=== PATIENT | female | born 1985 | race Asian ===

== ENCOUNTER 2016-10-23 21:13 | Emergency (ER) | payer OTHER ==
[2016-10-23 21:37] VITALS: BP 134/84; PULSE 96; TEMP 98.1; BMI 28.3
--- NOTE | 2016-10-23 23:18 | PDOC ---
History of Present Illness - General History Source: Patient Exam Limitations: No Limitations - History of Present Illness Initial Comments: 10/23/16 23:37 The patient is a 31 year old female with significant past medical history of asthma, ectopic (12/31/15) s/p left fallopian tube removal and PID who presents to the ED for 2 days of left lower quadrant pain. Patient describes pain as 10/10, sharp and radiating up to the left mid abdomen. Denies nausea, vomiting, or diarrhea. States she is currently on a cycle of clomid to stimulate her ovaries at a clinic in [place]. She does not have a WASHROOM OPERATOR here in [place] and has not been seen her WASHROOM OPERATOR in quite some time. Patient reports she is concern for having a ruptured ectopic on the right because her ectopic in the past involving the left fallopian tube, she was experiencing excruciating pain on the right. Denies vaginal bleeding or discharge. Denies dysuria, hematuria, urgency, and frequency. The patient denies fever, chills, diaphoresis, cough, SOB, chest pain, and palpitations. Allergies: NKDA Social History: No alcohol, tobacco, or drug use reported. Past Surgical History: resection of left fallopian tube secondary to ruptured ectopic (12/2015) PCP: Dr. Shilo Gonzalez <Sheila Burgess - Last Filed: 10/24/16 01:34> - General History Source: Patient <Elder Fair - Last Filed: 10/24/16 01:37> - General Chief Complaint: Pain Stated Complaint: ABD PAIN Time Seen by Provider: 10/23/16 23:13 Past History <Sheila Burgess - Last Filed: 10/24/16 01:34> - Past Medical History Asthma: Yes Diabetes: Yes (Borderline) - Psycho/Social/Smoking Cessation Hx Anxiety: No Suicidal Ideation: No Smoking History: Never smoked Have you smoked in the past 12 months: No Information on smoking cessation initiated: No Hx Alcohol Use: No Drug/Substance Use Hx: No Substance Use Type: None <Elder Fair - Last Filed: 10/24/16 01:37> - Past Medical History Allergies/Adverse Reactions: Allergies Allergy/AdvReac Type Severity Reaction Status Date / Time No Known Allergies Allergy Verified 10/23/16 21:29 Home Medications: Ambulatory Orders Ascorbate Calcium [Vitamin C] 500 mg PO DAILY #30 tablet 12/31/15 Docusate Sodium [Colace -] 100 mg PO DAILY #30 capsule 12/31/15 Ferrous Sulfate [Feosol] 325 mg PO BID #30 tablet 12/31/15 Ibuprofen [Motrin -] 600 mg PO QID #28 tablet 12/31/15 Ibuprofen 600 mg PO Q6H PRN #20 tablet 01/10/16 Oxycodone HCl/Acetaminophen [Percocet 5-325 mg Tablet] 1 tab PO Q6H PRN #12 tab MDD 4 01/10/16 Review of Systems - Review of Systems Able to Perform ROS?: Yes Comments:: 10/23/16 23:37 CONSTITUTIONAL: Absent: fever, no chills, no fatigue EYES: Absent: visual changes ENT: Absent: ear pain, no sore throat CARDIOVASCULAR: Absent: chest pain, no palpitations RESPIRATORY: Absent: cough, no SOB GI: +left lower quadrant pain radiating to the left mid abdomen Absent: no nausea, no vomiting, no constipation, no diarrhea GENITOURINARY: Absent: dysuria, no frequency, no hematuria MUSCULOSKELETAL: Absent: back pain, no arthralgia, no myalgia SKIN: Absent: rash NEURO: Absent: headache <Bharrat,Sheila - Last Filed: 10/24/16 01:34> *Physical Exam - Vital Signs Last Vital Signs Temp Pulse Resp BP Pulse Ox 98.1 F 96 H 18 134/84 99 10/23/16 21:31 10/23/16 21:31 10/23/16 21:31 10/23/16 21:31 10/23/16 21:31 - Physical Exam Comments: 10/23/16 23:37 GENERAL: Well-appearing, well-nourished. No apparent distress. HEENT: Normocephalic, atraumatic. PERRL, EOM intact. CARDIOVASCULAR: Normal S1, S2. Regular rate and rhythm. PULMONARY: Clear to auscultation bilaterally. ABDOMEN: Soft. Non-distended. Moderate tenderness with mild guarding of the left lower quadrant. No rebound. No organomegaly. Normoactive bowel sounds. PELVIC: Deferred to ultrasound. EXTREMITIES: Normal ROM in all four extremities. No gross deformities. SKIN: Warm, dry. No rash NEUROLOGICAL: No focal neurological deficits. <Sheila Burgess - Last Filed: 10/24/16 01:34> - Vital Signs Last Vital Signs Temp Pulse Resp BP Pulse Ox 98.1 F 96 H 18 134/84 99 10/23/16 21:31 10/23/16 21:31 10/23/16 21:31 10/23/16 21:31 10/23/16 21:31 <Elder Fair - Last Filed: 10/24/16 01:37> ED Treatment Course - RADIOLOGY Radiograph Interpretation: 10/24/16 01:34 EXAM: Pelvic ultrasound with Doppler study of the bilateral ovaries Reviewed by Imaging director of home economics: FINDINGS: The uterus is normal. Endometrium is normal as well with a thickness of 5 mm. Normal follicular right ovary. There is a 3 cm x 2.9 cm x 3.2 cm complex cyst of the left ovary, likely hemorrhagic. There is some fluid around the cyst and it is therefore likely rupturing. There is also free fluid in the pelvic cul-de-sac. <Sheila Burgess - Last Filed: 10/24/16 01:34> Medical Decision Making - Medical Decision Making 10/24/16 01:36 Dr. Fair: The scribe's documentation has been prepared under my direction and personally reviewed by me in its entirery. I confirm that the note above accurately reflects all work, treatment, procedures, and medical decision making performed by me. <Elder Fair - Last Filed: 10/24/16 01:37> *DC/Admit/Observation/Transfer - Attestations Scribe Attestion: 10/23/16 23:37 Documentation prepared by Sheila Burgess, acting as medical stenographer for Elder Fair DO. 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
[2016-10-23 23:53] LABS: URINE APPEARANCE CLEAR; URINE BILIRUBIN NEGATIVE (NEGATIVE); URINE BLOOD NEGATIVE (NEGATIVE); URINE COLOR LTYELLOW; URINE GLUCOSE (UA) NEGATIVE (NEGATIVE); URINE KETONE NEGATIVE (NEGATIVE); URINE LEUK ESTERASE NEGATIVE (NEGATIVE); URINE NITRITE NEGATIVE (NEGATIVE); URINE PROTEIN NEGATIVE (NEGATIVE); URINE UROBILINOGEN NEGATIVE mg/dL (0.2-1.0)
== END 2016-10-24 01:59 | disposition home or self-care (01) ==
LOC: JER 21:13
DX: N83.202 Unspecified ovarian cyst, left side (principal)
CPT/HCPCS: 76830-TC; 81003; 84703; 87086; 99281-25

== ENCOUNTER 2020-03-23 10:50 | Emergency (ER) | payer OTHER ==
[2020-03-23 11:33] VITALS: BP 139/80; PULSE 92; BMI 32.4
[2020-03-23 13:49] LABS: BASO % 0.5 % (0-2.0); EOS % 5.3 % (0-4.5); HEMATOCRIT 38.9 % (32.4-45.2); HEMOGLOBIN 12.6 GM/dL (10.7-15.3); LYMPH % 23.3 % (8-40); MCH 24.6 pg (25.7-33.7); MCHC 32.3 g/dl (32.0-36.0); MEAN CELL VOLUME 76.1 fl (80-96); MEAN PLT VOLUME 7.4 fl (7.5-11.1); MONO % 4.9 % (3.8-10.2); PLATELET COUNT 433 K/MM3 (134-434); RBC 5.11 M/mm3 (3.60-5.2); WHITE BLOOD COUNT 21.4 K/mm3 (4.0-10.0)
[2020-03-23 13:51] LABS: EPI CELLS 28 /uL (0-25.1); HYALINE CASTS 1 /uL (0-3.1); PH,URINE 5.5 (5.0-8.0); URINE APPEARANCE CLEAR; URINE BACTERIA 828 /uL (0-1359); URINE BILIRUBIN NEGATIVE (NEGATIVE); URINE COLOR YELLOW; URINE GLUCOSE (UA) NEGATIVE (NEGATIVE); URINE KETONE NEGATIVE (NEGATIVE); URINE LEUK ESTERASE NEGATIVE (NEGATIVE); URINE NITRITE NEGATIVE (NEGATIVE); URINE PROTEIN NEGATIVE (NEGATIVE); URINE RBC 30 /uL (0-23.9); URINE UROBILINOGEN 0.2 mg/dL (0.2-1.0); URINE WBC 7 /uL (0-25.8)
[2020-03-23 14:22] LABS: ANISOCYTOSIS 3+; MACROCYTOSIS 0; PLATELET ESTIMATE NORMAL
[2020-03-23 14:37] LABS: YEAST NON (NEGATIVE)
== END 2020-03-23 15:25 | disposition home or self-care (01) ==
LOC: JER 10:50
DX: O20.0 Threatened abortion (principal)
CPT/HCPCS: 36415; 76817-TC; 81003; 84702; 85025; 86850; 86900; 86901; 87086; 99284-25